=== PATIENT | male | born 1970 | race Two or more races ===

== ENCOUNTER 2022-01-14 13:45 | Inpatient (IN) | payer OTHER ==
[~2022-01-14] VITALS: Ht 170.2 cm; Wt 82.1 kg
[~2022-01-14 13:45] MED LIST: ASPI-1169 PO; BLOO-668 IN; METF-440 PO; PRAV40TA3 PO
--- NOTE | 2022-01-14 13:51 | NUR ---
TO ER BED 2, C/O LEFT SIDED CHEST PAIN X 4 DAYS, AAOX3, BREATHING EVEN AND NON LABORED, CONNECTED TO MONITOR, AWAITING MD IGNACIO
[2022-01-14] MEDS ORDERED: MORPHINE SULFATE INJ 2 MG/ML DISP.SYRIN IV ONE (14:30)
[2022-01-14] MEDS ORDERED: ASPIRIN 325 MG TABLET PO ONE (14:30)
[2022-01-14] MEDS ORDERED: MORPHINE SULFATE INJ 2 MG/ML DISP.SYRIN ONE (14:51)
[2022-01-14] MEDS ORDERED: ASPIRIN 325 MG TABLET ONE (14:51)
[2022-01-14 15:00] LABS: BASOPHILS % (AUTO) 0.6 % (0.0-2.0); EOSINOPHILS % (AUTO) 1.3 % (0.0-6.0); HEMATOCRIT 46 % (39-51); HEMOGLOBIN 14.9 g/dL (13.5-17.5); LYMPHOCYTES # (AUTO) 2.1 K/uL (0.8-4.8); LYMPHOCYTES % (AUTO) 37.6 % (20.0-44.0); MEAN CORPUSCULAR HGB CONC 33 g/dl (31.0-36.0); MEAN CORPUSCULAR VOLUME 85 fL (80-96); MONOCYTES # (AUTO) 0.6 K/uL (0.1-1.30); MONOCYTES % (AUTO) 10.9 % (2.0-12.0); NEUTROPHILS # (AUTO) 2.8 K/uL (1.8-8.9); NEUTROPHILS % (AUTO) 49.6 % (43.0-81.0); PLATELET COUNT (AUTO) 160 K/uL (150-450); RED BLOOD CELL COUNT(AUTO) 5.33 MIL/uL (4.5-6.0); WHITE BLOOD COUNT (AUTO) 5.6 K/uL (4.3-11.0)
--- NOTE | 2022-01-14 15:20 | NUR ---
COVID SWAB DONE AND SENT TO LAB
[2022-01-14 15:22] LABS: CALCIUM, SERUM 9.3 mg/dL (8.5-10.1); CARBON DIOXIDE 29 mmol/L (21-32); CHLORIDE 104 mmol/L (98-107); GLUCOSE 166 mg/dL (74-106); POTASSIUM 4.3 mmol/L (3.5-5.1); SODIUM SERUM 140 mmol/L (136-145); UREA NITROGEN, BLOOD 13 mg/dL (7-18)
[2022-01-14 15:34] LABS: ALANINE AMINOTRANSFERASE 79 U/L (12-78); ALBUMIN 4.1 g/dL (3.4-5.0); ALKALINE PHOSPHATASE 79 U/L (46-116); ASPARTATE AMINOTRANSFERASE 51 U/L (15-37); BILIRUBIN,DIRECT 0.3 mg/dL (0.0-0.2); BILIRUBIN,TOTAL 1.6 mg/dL (0.2-1.0); TOTAL PROTEIN, SERUM 7.5 g/dL (6.4-8.2)
[2022-01-14] MEDS ORDERED: ATOR40TA PO (16:33)
--- NOTE | 2022-01-14 16:38 | NUR ---
MOVE PACKET AND CLINICALS SUBMITTED.
--- NOTE | 2022-01-14 17:10 | NUR ---
CALL FROM RONIT MILAN FROM [employer],THEY WILL INITIATE A TX TO [facility]
--- NOTE | 2022-01-14 18:37 | NUR ---
SPOKE TO RONIT ROGEL, STS HE'S IN TOUCH WITH THE MD AND WILL ADVISE
--- NOTE | 2022-01-14 19:33 | NUR ---
RECEIVED REPORT FROM XIMENA ALCANTARA. PATIENT CAME WITH CC OF CHEST PAIN. WILL BE TRANSFERRING TO ANOTHER HOSPITAL.
--- NOTE | 2022-01-14 21:54 | NUR ---
room [id number]
--- NOTE | 2022-01-14 21:57 | NUR ---
report given to Angela BUENO to continue care.
[2022-01-14] MEDS ORDERED: ENOXAPARIN SODIUM 40 MG/0.4 ML DISP.SYRIN SQ SCH (22:00)
[2022-01-14] MEDS ORDERED: ONDANSETRON HCL/PF 4 MG/2 ML VIAL IVP PRN (22:00)
[2022-01-14] MEDS ORDERED: NITROGLYCERIN 0.4 MG/TAB BOTTLE SL PRN (22:00)
[2022-01-14] MEDS ORDERED: HYDROCODONE/APAP 5/325MG TABLET PO PRN (22:00)
[2022-01-14] MEDS ORDERED: Z GUARD REMEDY 4 OZ OINT TP PRN (22:00)
[2022-01-14] MEDS ORDERED: TEMAZEPAM 15 MG CAPSULE PO PRN (22:00)
[2022-01-14] MEDS ORDERED: ATORVASTATIN 40 MG TABLET PO SCH (22:00)
[2022-01-14] MEDS ORDERED: MAG HYDROX/AL HYDROX/SIMETH 30 ML UDC PO PRN (22:00)
[2022-01-14] MEDS ORDERED: MAGNESIUM HYDROXIDE 30 ML UDC PO PRN (22:00)
[2022-01-14] MEDS ORDERED: DEXTROSE 50%-WATER 50 ML DISP.SYRIN IV PRN (22:00)
[2022-01-14] MEDS ORDERED: ACETAMINOPHEN 325 MG TABLET PO PRN (22:00)
--- NOTE | 2022-01-14 22:21 | NUR ---
TRANSFER PT TO ROOM
[2022-01-14] MEDS ORDERED: MORPHINE SULFATE INJ 4 MG/ML DISP.SYRIN IV PRN (22:30)
[2022-01-14 22:35] VITALS: BP 147/99
[2022-01-14] MEDS: BLOOD SUGAR DIAGNOSTIC 1 EACH STRIP IN SCH (22:58)
[2022-01-14 23:50] VITALS: BP 147/99
[2022-01-15 04:00] VITALS: BP 162/93
[2022-01-15 06:45] LABS: BASOPHILS % (AUTO) 0.4 % (0.0-2.0); HEMATOCRIT 45 % (39-51); HEMOGLOBIN 15.1 g/dL (13.5-17.5); LYMPHOCYTES # (AUTO) 1.9 K/uL (0.8-4.8); LYMPHOCYTES % (AUTO) 38.8 % (20.0-44.0); MEAN CORPUSCULAR HGB CONC 33 g/dl (31.0-36.0); MEAN CORPUSCULAR VOLUME 85 fL (80-96); MONOCYTES # (AUTO) 0.7 K/uL (0.1-1.30); MONOCYTES % (AUTO) 14.2 % (2.0-12.0); NEUTROPHILS # (AUTO) 2.2 K/uL (1.8-8.9); NEUTROPHILS % (AUTO) 44.6 % (43.0-81.0); PLATELET COUNT (AUTO) 150 K/uL (150-450); RED BLOOD CELL COUNT(AUTO) 5.32 MIL/uL (4.5-6.0); WHITE BLOOD COUNT (AUTO) 4.8 K/uL (4.3-11.0)
[2022-01-15] MEDS: BLOOD SUGAR DIAGNOSTIC 1 EACH STRIP IN SCH ×3 (06:46→17:13)
[2022-01-15] MEDS: INSULIN REGULAR, HUMAN 100 UNIT/ML 3 ML VIAL SQ PRN ×3 (06:47→17:14)
[2022-01-15 07:04] LABS: CALCIUM, SERUM 9.5 mg/dL (8.5-10.1); MAGNESIUM 2.2 mg/dL (1.8-2.4); PHOSPHORUS 4.2 mg/dL (2.5-4.9); POTASSIUM 4.8 mmol/L (3.5-5.1)
--- NOTE | 2022-01-15 07:26 | NUR ---
PRECISION LENS TECHNICIAN OPENING NOTE RECEIVED PT ASLEEP IN BED, EASILY AROUSED. PT A/OX4, ABLE TO MAKE NEEDS KNOWN. ON ROOM AIR, TOLERATING WELL. NO SOB NOTED. NOT IN ANY SIGN OF RESPIRATORY DISTRESS. PT ON CARDIAC TELE MONITOR WITH CURRENT READING OF SINUS RHYTHM, HR 70. NO C/O CARDIAC DISTRESS VOICED OUT A T THIS TIME. IV ACCESS IN LAC G#18 INTACT AND PATENT. SAFETY MEASURES IN PLACE: BED IN LOWEST AND LOCKED POSITION, SIDE RAILS UPX2, AND CALL LIGHT WITHIN EASY REACH. WILL CONTINUE TO MONITOR PT.
[2022-01-15] MEDS ORDERED: PANTOPRAZOLE 40 MG TABLET.DR PO SCH (07:30)
[2022-01-15 08:33] VITALS: BP 120/68
[2022-01-15 08:33] LABS: THYROID STIMULATING HORMONE 3.096 uIU/mL (0.358-3.74)
[2022-01-15 08:34] VITALS: BP_SYST 120; BP_SYST 178; BP_DIAS 68; BP_DIAS 94
[2022-01-15] MEDS ORDERED: ASPIRIN 81 MG TAB.CHEW PO SCH ×2 (09:00)
[2022-01-15] MEDS ORDERED: METFORMIN 500 MG TABLET PO SCH (09:00)
--- NOTE | 2022-01-15 11:49 | NUR ---
RN NOTE PT'S ACCUCHECK BLOOD SUGAR WAS 149 MG/DL, PT NEEDS 2 UNITS OF INSULIN PER SLIDING SCALE COVERAGE. PT REFUSED THE 2 UNITS INSULIN COVERAGE. OFFERED AND EXPLAINED RISK AND BENEFITS X3, STILL STRONGLY REFUSED.
[2022-01-15] MEDS ORDERED: IV NS 0.9% 250 ML IV ONE (12:44)
[2022-01-15] MEDS ORDERED: CT SWABBABLE VALVE TRANS SET 1 EA INFUS.SET MC ONE (12:44)
[2022-01-15] MEDS ORDERED: IOHEXOL-350 100 ML VIAL IV ONE (12:44)
[2022-01-15] MEDS ORDERED: NITROGLYCERIN 0.4 MG/TAB BOTTLE ONE ×2 (13:23)
[2022-01-15] MEDS ORDERED: METOPROLOL TARTRATE INJ 5 MG/5 ML AMPUL ONE (13:23)
[2022-01-15 13:30] VITALS: BP 125/80
[2022-01-15] MEDS ORDERED: NITROGLYCERIN 0.4 MG/TAB BOTTLE SL ONE (13:30)
[2022-01-15] MEDS ORDERED: METOPROLOL TARTRATE INJ 5 MG/5 ML AMPUL IVP PRN (13:30)
[2022-01-15] MEDS ORDERED: METOCLOPRAMIDE HCL 10 MG/2 ML VIAL IV ONE (14:00)
[2022-01-15] MEDS ORDERED: diphenhydrAMINE HCL 50 MG/ML VIAL IV ONE (14:00)
[2022-01-15] MEDS ORDERED: METF-442 PO (17:10)
--- NOTE | 2022-01-15 18:40 | NUR ---
SHEET METAL WELDER NOTE PT DISCHARGED TO HOME IN STABLE CONDITION. PT A/O X4, ABLE TO MAKE NEEDS KNOWN. ON RA, TOLERATING WELL WITH SPO2 AT 97%. NO SOB NOTED. NOT IN ANY SIGN OF RESPIRATORY DISTRESS. VITAL SIGNS TAKEN, STABLE, AND RECORDED. SKIN INTACT WITH NO SKIN ISSUES NOTED. ALL BELONGINGS ACCOUNTED FOR. DISCHARGED INSTRUCTIONS AND HEALTH TEACHINGS GIVEN TO PT AND PT VERBALIZED UNDERSTANDING. IV ACCESS IN LAC G #18 REMOVED WITH NO ACTIVE BLEEDING NOTED. DRY PRESSURE DRESSING APPLIED TO SITE. PT'S TELE SOFTWARE SECURITY ARCHITECT REMOVED AND TELE BOX GIVEN TO BURN CREW MEMBER DAVID. PT'S CARDIAC TELE MONITOR READING PRIOR TO REMOVAL WAS SINUS RHYTHM, HR 74. NAME BAND REMOVED. PT LEFT THE UNIT AT 1835 VIA WHEELCHAIR, ACCOMPANIED BY THE SCREWMAKER AUTOMATIC, SEMAJ Garcia. PT WAS PICKED UP BY VIA PRIVATE CAR. AND CHARGED NURSE AWARE OF DISCHARGED.
== END 2022-01-15 18:40 | disposition home or self-care (01) | DRG 243 ==
LOC: ER 13:48 → TELE 22:17
PROVIDERS: ADMIT Nurse Practitioner Acute Care; ATTEND Nurse Practitioner Family
DX: K21.9 Gastro-esophageal reflux disease without esophagitis (principal); E11.9 Type 2 diabetes mellitus without complications; E66.9 Obesity, unspecified; Z79.82 Long term (current) use of aspirin; Z79.84 Long term (current) use of oral hypoglycemic drugs; E78.5 Hyperlipidemia, unspecified; Z68.28 Body mass index [BMI] 28.0-28.9, adult; Z20.822 Contact with and (suspected) exposure to COVID-19
CPT/HCPCS: 36415; 71045-TC; 75574; 80048-TC; 80061-TC; 80076-TC; 82962-TC; 83735-TC; 83880; 84100-TC; 84443-TC; 84484-TC; 85025-TC; 87081-TC; 93307-TC; C9803; G0378; J1200; J1650; J1815; J2270; J2765; J3490; J7050; Q9967